=== PATIENT | male | born 1950 | race Caucasian/White ===

== ENCOUNTER → 2023-10-17 06:17 | Day surgery (SDC) | payer MEDICARE, OTHER, SELFPAY | LOC: GI 06:17 | PROVIDERS: ATTENDING PHYSICIAN Specialist | DX: Z12.11 Encounter for screening for malignant neoplasm of colon (principal); K57.30 Diverticulosis of large intestine without perforation or abscess without bleeding; D12.2 Benign neoplasm of ascending colon; K63.5 Polyp of colon | CPT/HCPCS: 45385; 45381; 88305 ==

== ENCOUNTER 2023-12-11 08:54 | Day surgery (SDC) | payer MEDICARE, OTHER, SELFPAY ==
[2023-12-11 07:15] VITALS: BMI 27.1
[2023-12-11 07:17] VITALS: BMI 27.1
[2023-12-11 07:18] VITALS: BP 161/84
[2023-12-11 09:06] VITALS: BP 118/66
[2023-12-11 09:15] VITALS: BP 120/68
[2023-12-11 09:30] VITALS: BP 138/69
== END 2023-12-11 09:40 | disposition home or self-care (01) ==
LOC: SDS 08:54
PROVIDERS: ATTENDING PHYSICIAN Internal Medicine Gastroenterology
DX: D12.3 Benign neoplasm of transverse colon (principal); D12.4 Benign neoplasm of descending colon; K57.30 Diverticulosis of large intestine without perforation or abscess without bleeding; K64.0 First degree hemorrhoids
CPT/HCPCS: 45385; 45380; 45381; 88305

== ENCOUNTER 2024-01-17 06:16 | Day surgery (SDC) | payer MEDICARE, OTHER, SELFPAY ==
[2024-01-17 08:10] VITALS: BMI 27.6
[2024-01-17 08:24] VITALS: BP 155/98; BMI 27.6
[2024-01-17 10:10] VITALS: BP 126/82
[2024-01-17 10:20] VITALS: BP 135/70
[2024-01-17 10:30] VITALS: BP 146/72
== END 2024-01-17 10:45 | disposition home or self-care (01) ==
LOC: SDS 06:16
PROVIDERS: ATTENDING PHYSICIAN Internal Medicine Gastroenterology
DX: C18.6 Malignant neoplasm of descending colon (principal); C77.9 Secondary and unspecified malignant neoplasm of lymph node, unspecified; K57.30 Diverticulosis of large intestine without perforation or abscess without bleeding; K64.0 First degree hemorrhoids
CPT/HCPCS: 45349; 88305; 88342